=== PATIENT | female | born 1940 | race Caucasian/White ===

== ENCOUNTER 2016-09-25 16:23 | Observation (INO) ==
--- NOTE | 2016-09-25 16:51 | Emergency Department Note ---
Disposition Clinical Impression: Palpitations, PVCs (premature ventricular contractions), Elevated blood pressure reading Disposition: Admitted As Inpatient Condition: Good Arrhythmia/Palpitations HPI - General Chief Complaint: ED Arrhythmia/Palpitations Stated Complaint: frequent pvc's Time Seen by Provider: 09/25/16 16:39 Source: patient Mode of arrival: ambulatory Limitations: no limitations Nursing Notes Reviewed: Yes Vital Signs Reviewed: Yes - History of Present Illness HPI Narrative: 75-year-old female history of hypertension presents for evaluation of irregular heartbeat. Patient notes that approximately week ago she was getting a procedure done by Dr. Cordoba and noted an irregular rhythm on the monitor. Patient had an EKG at that time which showed no acute abnormalities and had a reschedule of her procedure. Patient had a procedure earlier today and noted a continuation of the irregular rhythm on the monitor. Patient notes some fluttering in her chest but denies any specific chest pain. Patient also notes some dyspnea on exertion. No fevers. No cough. Patient states that she is relatively healthy and active with exercise weekly and can climb a flight of stairs without stopping. Denies any excessive caffeine use. No history of thyroid issues. Reports that she eats a healthy diet. Reports that approximately 3 years ago she had a heart catheter and a stress test done after an abnormal EKG but was unsure what the abnormality was. States that no interventions were done following heart catheter. Patient denies any history of DVTs or PEs. No unilateral leg swelling. No recent long travel or periods of immobility. No active cancers. - Related Data Home Medications Medication Instructions Recorded Confirmed Felodipine [Felodipine ER] 2.5 mg PO DAILY 06/11/16 09/25/16 Hydrochlorothiazide [Microzide] 12.5 mg PO DAILY 06/11/16 09/25/16 Dorzolamide [Trusopt] 1 drop RIGHT EYE TID 09/25/16 09/25/16 Fluorometholone [Fml] 1 drop RIGHT EYE QID 09/25/16 09/25/16 Allergies Allergy/AdvReac Type Severity Reaction Status Date / Time JUVENAL Inhibitors Allergy Rash Unverified 07/06/15 13:53 Penicillins [PCN] Allergy Rash Unverified 07/06/15 13:53 Sulfa (Sulfonamide Allergy Rash Unverified 07/06/15 13:53 Antibiotics) All systems ED: reviewed and negative except as stated. Constitutional: Reports: as per HPI. Denies: fever Eyes: Reports: as per HPI ENT ED: Reports: as per HPI Cardiovascular: Reports: as per HPI. Denies: chest pain Respiratory: Reports: as per HPI, dyspnea. Denies: cough Gastrointestinal: Reports: as per HPI. Denies: abdominal pain, nausea, vomiting Genitourinary: Reports: as per HPI Musculoskeletal: Reports: as per HPI Neurological: Reports: as per HPI Psychiatric: Reports: as per HPI. Denies: anxiety Endocrine: Reports: as per HPI Hematological/Lymphatic: Reports: as per HPI Past Medical History - Past Medical History Medical history: Reports: hypertension Psychiatric history: Reports: no psych history - Social History Smoking Status: Never smoker Smokeless Tobacco Status: No Alcohol use: Reports: none, rarely Drug use: Reports: none Physical Exam - General Limitations: no limitations General appearance: alert - Head Head exam: atraumatic, normocephalic, normal inspection - Eye Eye exam: Present: normal appearance, EOMI. Absent: scleral icterus - ENT ENT exam: normal exam, mucous membranes moist - Neck Neck exam: Present: normal inspection - Chest Chest inspection: Present: normal inspection, symmetric chest wall rise - Respiratory Respiratory exam: Present: normal lung sounds bilaterally. Absent: respiratory distress - Cardiovascular Cardiovascular exam: Present: regular rate, irregular rhythm. Absent: systolic murmur - Abdominal Exam Abdominal exam: Present: soft, Non-Tender - Extremities Exam Extremities exam: Present: normal inspection. Absent: pedal edema - Back Exam Back exam: Present: normal inspection - Neurological Exam Neurological exam: Present: alert - Skin Skin exam: Present: warm, dry, intact, normal color Course Course Narrative: Patient seen and examined upon arrival to the emergency department. Patient in no acute distress. Patient does show unifocal PVCs on the monitor. Patient's rhythm strip from the procedure earlier today was reviewed and shows a run of 6 unifocal PVCs. Patient's EKG obtained at bedside shows 4 unifocal PVCs. Patient's vitals are stable. Patient will get basic lab work including a TSH, a EKG, and admission as an inpatient with cardiology evaluation. - Reevaluation(s) Reevaluation #1: Patient seen and examined. Patient's resting. No acute distress. Patient's lab work reviewed and shows no acute abnormalities. This information was discussed with the patient. Time: 18:19 Vital Signs Temperature 97.3 F L 09/25/16 16:36 Pulse Rate 68 09/25/16 16:36 Respiratory Rate 18 09/25/16 16:36 Blood Pressure 171/84 09/25/16 16:36 O2 Sat by Pulse Oximetry 96 09/25/16 16:36 Temperature 97.3 F L 09/25/16 16:36 Pulse Rate 66 09/25/16 18:27 Respiratory Rate 18 09/25/16 19:15 Blood Pressure 150/64 09/25/16 19:15 O2 Sat by Pulse Oximetry 97 09/25/16 18:27 Oxygen Delivery Oxygen Delivery Room Air Arrhythmia/Palpitations - MDM Narrative Medical decision making narrative: 75-year-old female with history of hypertension presents for evaluation or palpitations. Patient states that she had an abnormal rhythm about a week ago and has been having fluttering in her chest since then. Patient denies having any history of cardiac disease. Patient denies any excessive caffeine or thyroid issues. Patient had the procedure performed today by Dr. Cordoba and noted a abnormal rhythm on the monitor which included a run of 6 PVCs. Patient denies any chest pain. Patient obtain basic lab work including a TSH and a magnesium and phosphorus troponin. Due to the patient's age and the fact that she had a run of 6 beats of PVC earlier today she would best be admitted for observation cardiac evaluation. Patient denied any need for pain medications at this time. Patient's lab work reviewed shows no acute abnormalities. Patient in no acute distress in the emergency department. Patient will be admitted for observation and cardiac evaluation. Patient is agreeable to plan of care. - Lab Data Lab results reviewed: Yes I reviewed the patient's lab results. Result diagrams: 09/25/16 17:19 09/25/16 17:19 Lab Results 09/25/16 09/25/16 09/25/16 Range/Units 17:19 17:19 17:19 WBC 5.6 (4.3-11.1) K/mcL RBC 4.74 (3.82-4.97) M/mcL Hgb 14.9 (11.5-15.4) g/dL Hct 43.6 (35.3-44.9) % MCV 92.0 (83.0-100.0) fL MCH 31.4 (28.0-33.3) pg MCHC 34.2 (31.6-35.5) g/dL RDW 11.9 (11.5-14.5) % Plt Count 196 (140-400) K/mcL MPV 10.9 (9.4-12.4) fL Immature Gran % 0.4 (0-4) % Seg Neutrophils % 74.1 % Lymphocytes % 15.0 % Monocytes % 9.1 % Eosinophils % 0.9 % Basophils % 0.5 % Neutrophils # 4.2 (1.6-8.9) K/mcL Lymphocytes # 0.8 (0.6-4.6) K/mcL Monocytes # 0.5 (0.0-1.3) K/mcL Eosinophils # 0.1 (0.0-0.6) K/mcL Basophils # 0.0 (0.0-0.2) K/mcL Sodium 140 (136-145) mEq/L Potassium 3.6 (3.5-4.5) mEq/L Chloride 107 (98-109) mEq/L Carbon Dioxide 26 (19-29) mEq/L BUN 11 (7-20) mg/dL Creatinine 0.72 (0.57-1.11) mg/dL Est GFR ( Amer) > 60 (> 60) Est GFR (Non-Af Amer) > 60 (> 60) BUN/Creatinine Ratio 15 (6-26) Glucose 105 H (70-99) mg/dL Calculated Osmolality 290 (280-300) Calcium 9.7 (8.6-10.8) mg/dL Phosphorus 3.0 (2.3-4.7) mg/dL Magnesium 2.0 (1.6-2.6) mg/dL Troponin I 0.00 (0-0.03) ng/mL TSH 1.185 (0.350-4.840) mcIU/mL - EKG Data EKG attestation: Yes I reviewed and interpreted this EKG. EKG shows normal: sinus rhythm Rate: normal Rhythm: NSR, PVC's (4 unifocal ) [place]/QRS: normal Interpretation: other (unifocal PVC ) S.B.A.R. - S.B.A.R. Situation: Demographics Background: Presenting Complaint Assessment: Vital Signs, Course and respsone to treatment, Exam Concerns, Patient/Family Expectation, Pertinant Lab Results Recommendation: Barrier(s) to disposition, Recommendation based on pending studies, treatments, or consults Wes Report Given to: Dr. Bigg Harvey Repor Time: 18:41 Attestation Statement - Attestation Attestation: I examined this patient and my medical decision-making was reviewed with the Resident Physician. I agree with the documented findings, disposition and treatment plan as described except to the extent set forth below. Palpitations w PVCs, 3 runs of 5-8 beats documented at outside facility (strips sent w patient). Admit for obs, cardiac eval.
[2016-09-25 17:40] LABS: BUN/Creatinine Ratio 15 (6-26); Blood Urea Nitrogen 11 mg/dL (7-20); Calcium 9.7 mg/dL (8.6-10.8); Carbon Dioxide 26 mEq/L (19-29); Chloride 107 mEq/L (98-109); Glucose 105 mg/dL (70-99); Osmolality,Calculated 290 (280-300); Potassium 3.6 mEq/L (3.5-4.5); Sodium 140 mEq/L (136-145); eGFR For African Americans > 60 (> 60); eGFR For Non-African Americans > 60 (> 60)
[2016-09-25 18:00] LABS: Thyroid Stimulating Hormone 1.185 mcIU/mL (0.350-4.840)
[2016-09-25 18:44] LABS: Basophils % 0.5 %; Eosinophils # 0.1 K/mcL (0.0-0.6); Eosinophils % 0.9 %; Hematocrit 43.6 % (35.3-44.9); Hemoglobin 14.9 g/dL (11.5-15.4); Immature Granulocytes % 0.4 % (0-4); Lymphocytes # 0.8 K/mcL (0.6-4.6); Mean Corpuscular HGB Conc 34.2 g/dL (31.6-35.5); Mean Corpuscular Hemoglobin 31.4 pg (28.0-33.3); Mean Platelet Volume 10.9 fL (9.4-12.4); Monocytes # 0.5 K/mcL (0.0-1.3); Monocytes % 9.1 %; Neutrophils # 4.2 K/mcL (1.6-8.9); Platelet Count 196 K/mcL (140-400); Red Blood Count 4.74 M/mcL (3.82-4.97); Red Cell Distribution Width 11.9 % (11.5-14.5); Segmented Neutrophils % 74.1 %
[2016-09-25] MEDS ORDERED: Naloxone 0.4 MG/ML INJ IVP PRN (20:46)
--- NOTE | 2016-09-25 20:50 | Internal Med History&Physical ---
Date of Encounter: 09/25/16 Time of Encounter: 21:00 Assessment and Plan (1) PVCs (premature ventricular contractions) Current visit: No Status: Acute Noted on telemetry during procedure, also several runs of V tach (5-8 beats per episode) noted in ER. Patient mildly symptomatic, but I suspect a component of anxiety is driving her symptoms now that she has been made aware of her PVCs/ short runs of V tach. - K 3.6 - will replace, Mag 2 - TSH within normal limits - Has been evaluated by cardiology in the past - will monitor on telemetry overnight and discharge home in AM with follow up as outpatient in cardiology clinic if no concerning arrhythmias overnight. (2) Essential hypertension Current visit: No Status: Acute BP stable on arrival to the floor - Continue home meds (3) Palpitations Current visit: Yes Status: Acute Secondary to PVCs. Resting heart rate around 50 while patient sleeping, will not initiate beta karl for symptom control at this time. Internal Medicine - H&P: HPI Chief complaint: Palpitations, PVCs on telemetry Admitted From: Emergency Dept Plans for Post Hospital Care: Home History of present illness: Ms. Will is a 75 year old female with history of hypertension and chronic back pain who presented to the ER after frequent PVCs were seen on telemetry during spinal injection with pain management. She had a spinal injection last week where PVCs and possible bigeminy was seen on telemetry and she was referred to cardiology for outpatient evaluation. Cardiology note states that she had PVCs but no bigeminy noted, and conservative management and reassurance were given without need for follow up. Patient states that she does have palpitations and mild shortness of breath with exertion since she was told about the PVCs, and admits she may just be paying more attention now that she is anxious about the newly discovered PVCs. She has not had any chest pain. She had LHC in 2013 which was negative for ischemic disease. In the ER she reportedly had frequent PVCs and was admitted for overnight observation. 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[employer] [place] - Family History Mother Living Status: Age at : 52 Cause of : CARDIAC Hx Family Cardiac Disorders: Yes (MARIA T) Internal Medicine - H&P: Meds Felodipine [Felodipine ER] 2.5 mg PO DAILY 06/11/16 [History] Hydrochlorothiazide [Microzide] 12.5 mg PO DAILY 06/11/16 [History] Dorzolamide [Trusopt] 1 drop RIGHT EYE TID 09/25/16 [History] Fluorometholone [Fml] 1 drop RIGHT EYE QID 09/25/16 [History] Allergies JUVENAL Inhibitors Allergy (Unverified 07/06/15 13:53) Rash Penicillins [PCN] Allergy (Unverified 07/06/15 13:53) Rash Sulfa (Sulfonamide Antibiotics) Allergy (Unverified 07/06/15 13:53) Rash All Systems PM: A 10-system review of systems was performed and is negative for pertinent findings except as documented above in the HPI. - Constitutional Constitutional: no fever(s), no weakness - EENT Eyes: no change in vision - Cardiovascular Cardiovascular ROS IM: palpitations, no chest pain, no lightheadedness, no syncope - Respiratory Respiratory: dyspnea, no cough, no wheezing - Gastrointestinal Gastrointestinal: no diarrhea, no nausea - Musculoskeletal Musculoskeletal ROS IM: back pain - Neurological Neurological ROS: no dizziness, no focal weakness - Psychiatric Psychiatric: anxiety - Allergic/Immunologic Allergic/Immunologic: no tongue swelling, no throat swelling - Constitutional Vitals: Temp Pulse Resp BP Pulse Ox 98.0 F 59 18 144/68 95 09/25/16 19:26 09/25/16 19:26 09/25/16 19:26 09/25/16 19:26 09/25/16 19:26 General appearance: Present: A&O X 3 - Head Head exam: Present: atraumatic - Eye Eye exam: Present: EOMI, sclera anicteric - ENT ENT exam: Present: mucous membranes moist - Neck Neck exam general surgery: Present: supple - Respiratory Respiratory exam: Present: CTAB. Absent: chest wall tenderness - Cardiovascular Cardiovascular exam: Present: RRR. Absent: diastolic murmur, gallop, rubs, systolic murmur - GI/Abdominal GI/Abdominal exam: Present: normal bowel sounds, soft. Absent: distended, tenderness - Neurological Exam Neurological exam: Present: no focal deficits - Skin Skin exam: Absent: rash Internal Med - H&P Results - Labs CBC & Chem 7: 09/25/16 17:19 09/25/16 17:19
[2016-09-25] MEDS: Fluorometholone OPTH 5 ML BOTTLE RIGHT EYE SCH (22:15)
[2016-09-25] MEDS: Dorzolamide OPTH 10 ML BOTTLE RIGHT EYE SCH (22:15)
[2016-09-26 06:34] LABS: Basophils % 0.4 %; Eosinophils % 0.6 %; Hematocrit 43.3 % (35.3-44.9); Hemoglobin 14.9 g/dL (11.5-15.4); Immature Granulocytes % 0.4 % (0-4); Lymphocytes # 0.8 K/mcL (0.6-4.6); Lymphocytes % 15.3 %; Mean Corpuscular HGB Conc 34.4 g/dL (31.6-35.5); Mean Corpuscular Hemoglobin 31.7 pg (28.0-33.3); Mean Corpuscular Volume 92.1 fL (83.0-100.0); Mean Platelet Volume 10.8 fL (9.4-12.4); Monocytes # 0.4 K/mcL (0.0-1.3); Neutrophils # 3.7 K/mcL (1.6-8.9); Platelet Count 200 K/mcL (140-400); Segmented Neutrophils % 75.3 %
[2016-09-26 06:50] LABS: BUN/Creatinine Ratio 14 (6-26); Blood Urea Nitrogen 10 mg/dL (7-20); Calcium 9.4 mg/dL (8.6-10.8); Carbon Dioxide 25 mEq/L (19-29); Chloride 110 mEq/L (98-109); Glucose 126 mg/dL (70-99); Magnesium 2.2 mg/dL (1.6-2.6); Osmolality,Calculated 295 (280-300); Sodium 142 mEq/L (136-145); eGFR For African Americans > 60 (> 60); eGFR For Non-African Americans > 60 (> 60)
[2016-09-26] MEDS: Dorzolamide OPTH 10 ML BOTTLE RIGHT EYE SCH ×3 (08:05→19:09)
[2016-09-26] MEDS: Fluorometholone OPTH 5 ML BOTTLE RIGHT EYE SCH ×4 (08:05→19:09)
[2016-09-26] MEDS ORDERED: FELODIPINE 2.5 MG PO SCH (09:00)
[2016-09-26] MEDS ORDERED: hydroCHLOROthiazide 25 MG TABLET PO SCH (09:00)
[2016-09-26] MEDS: Metoprolol XL (24 HR) Succ 25 MG TAB.ER.24H PO SCH (10:17)
--- NOTE | 2016-09-26 10:42 | Cardiology Consult Note ---
Date of Encounter: 09/26/16 Time of Encounter: 10:45 Assessment and Plan (1) PVCs (premature ventricular contractions) Current Visit: No Status: Acute Per Cardiology: Patient recently seen by cardiology last week for findings of PVCs on telemetry prior to procedure. 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 Troponins negative. Very active with no angina symptoms. Telemetry reviewed with average heart rate 58, PVCs noted with occasional couplets, rare nonsustained VT with longest being 4 beats. Magnesium, potassium , TSH stable. Echo from 11/2013 EF preserved 70%, mild TR. HCTZ already discontinued and patient started on beta karl by primary service. Agree with management options and continue to titrate beta karl as needed. Echo pending. Further recs after echo. Discussion w patient/family: The assessment and plan as outlined above was discussed with the patient and/or family members who expressed understanding and agreement. All questions were answered. Thank you for involving us in the care of your patient. Please call with any questions. Discussed and reviewed with Dr. Pruitt. History of Present Illness Consult date: 09/26/16 Requesting physician: Eliazar Pride Consult reason: PVCs Chief complaint: Palpitations History of present illness: Previous records reviewed: "Ms. Will is a 75 year old female with history of hypertension and chronic back pain who presented to the ER after frequent PVCs were seen on telemetry during spinal injection with pain management. She had a spinal injection last week where PVCs and possible bigeminy was seen on telemetry and she was referred to cardiology for outpatient evaluation. Cardiology note states that she had PVCs but no bigeminy noted, and conservative management and reassurance were given without need for follow up. Patient states that she does have palpitations and mild shortness of breath with exertion since she was told about the PVCs, and admits she may just be paying more attention now that she is anxious about the newly discovered PVCs. She has not had any chest pain. She had LHC in 2013 which was negative for ischemic disease. In the ER she reportedly had frequent PVCs and was admitted for overnight observation". Cardiology eval requested again for PVCs. Patient reports finally had back procedure completed yesterday and was found to have PVCs on monitor again. She reports increased palpitations over the past week that she attributes to now having awareness to the PVCs. She reports she is fairly active and exercises at the [employer] 3 times a week. She reports she walks pills regularly and walks 4 miles this past Saturday with no symptoms. She denies any dizziness, syncope, falls. Past Med Surg Social Fam HX - Past Medical History Attestation: Yes The following information was validated with the patient. Source: patient, old records reviewed Medical history: hypertension Psychiatric history: no psych history - Social History Smoking Status: Never smoker Smokeless Tobacco Status: No Alcohol use: none, rarely Drug use: none - Family History Mother Living Status: Age at : 52 Cause of : CARDIAC Hx Family Cardiac Disorders: Yes (MURMER) Medications and Allergies Felodipine [Felodipine ER] 2.5 mg PO DAILY 06/11/16 [History] Hydrochlorothiazide [Microzide] 12.5 mg PO DAILY 06/11/16 [History] Dorzolamide [Trusopt] 1 drop RIGHT EYE TID 09/25/16 [History] Fluorometholone [Fml] 1 drop RIGHT EYE QID 09/25/16 [History] Allergies JUVENAL Inhibitors Allergy (Verified 09/26/16 08:04) Rash Penicillins [PCN] Allergy (Verified 09/26/16 08:04) Rash Sulfa (Sulfonamide Antibiotics) Allergy (Verified 09/26/16 08:04) Rash All Systems Review: A 10-system review of systems was performed and is negative for pertinent findings except as documented above in the HPI. - Cardiovascular Cardiovascular: as per HPI, palpitations Physical Examination Vital Signs, Last 4 Hours Temp Pulse Resp BP Pulse Ox 09/26/16 08:06 96 09/26/16 07:27 97.8 F 63 16 150/76 96 General: Conversant, No Apparent Distress HEENT: Atraumatic, Normocephaly Cardiac: Reg Rate and Rhythm, Normal S1 and S2, No Murmur Lungs: Normal Breath Sounds, No Wheeze, Rales, Rhonchi Neuro: Alert and responsive, No focal deficits noted Skin: No rashes noted on visualized skin Musculoskeletal: No Chest Wall Tenderness Extremities: No Edema, Normal Pulses Results 09/26/16 05:29 09/26/16 05:29 Lab Results Laboratory Tests 09/25/16 09/25/16 09/25/16 17:19 17:19 22:51 Potassium Magnesium Troponin I 0.00 0.00 TSH 1.185 09/26/16 09/26/16 05:29 05:29 Potassium 4.0 Magnesium 2.2 Troponin I 0.00 TSH Active Medications Dorzolamide HCl (Trusopt) 1 drop RIGHT EYE TID [facility] Stop: 03/27/17 21:01 Last Admin: 09/26/16 08:05 Dose: Not Given Fluorometholone (Fml) 1 drop RIGHT EYE QID [facility] Stop: 03/27/17 21:01 Last Admin: 09/26/16 08:05 Dose: Not Given Metoprolol Succinate (Toprol Xl) 12.5 mg PO DAILY [facility] Stop: 03/28/17 10:01 Last Admin: 09/26/16 10:17 Dose: 12.5 mg Naloxone HCl (Narcan) 0.4 mg IVP Q2MIN PRN PRN Reason: Opioid Reversal Stop: 03/27/17 20:47 - Imaging and Cardiology Echo: pending - EKG Interpretation EKG results cardiology: personally reviewed, sinus rhythm (PVCs), other (24 hr tele reviewed, SR with avg HR 58, PVCs with occasional couplets, rare NSVT with longest being 4 beats) Consult Discharge Plan - Plan Referrals: Sravan Millan DO [Primary Care Provider] -
--- NOTE | 2016-09-26 16:12 | Internal Med Progress Note ---
<Iggy Arevalo - Last Filed: 09/26/16 16:10> Date of Encounter: 09/26/16 Time of Encounter: 16:10 - Assessment and plan (1) Nonsustained ventricular tachycardia Current Visit: Yes Status: Acute Assessment and plan: Max beats 9 ( in ER) 24 hour telemtry revealed max of 4 beats. Mildy symptomatic at this time. LHC 2013 showed mild CAD so very unlikely to be ischemic. Normal Eletrolytes. TSH within normal limits. Denies excess consumptions of caffeine. Dose not take ay over the counter medications or herbal supplements. Will start her on a low dose beta karl. Await echo results. Cardiology consulted. Disccused with cardiology team. Possible DC if Echo is normal. Appreciate cardiologies input. (2) Essential hypertension Current Visit: No Status: Acute Assessment and plan: above goal. Will add a beta karl to current regimen. (3) PVCs (premature ventricular contractions) Current Visit: Yes Status: Acute Assessment and plan: as stated above. (4) DVT prophylaxis Current Visit: Yes Status: Acute Assessment and plan: ambulate EPCDs while in bed. - Subjective Interval history: No major events overnight. I reviewed Telemetry form the past 24 hours. has some PVCs and some Non sustained Vtach of 4 beats. Max beats was 9 in the ED. Patient had been asymptomatic until being told she had PVCs. She states now she notices palpitations. she denies any chest pain, dyspnea, orthopnea, dizzyness, syncope presyncope. She has no further complaints or concerns at this time. She did have a LHC in November of 2013. This revealed minimal CAD. - Constitutional Vitals: Temp Pulse Resp BP Pulse Ox 97.8 F 63 16 150/76 96 09/26/16 07:27 09/26/16 07:27 09/26/16 07:27 09/26/16 07:27 09/26/16 08:06 General appearance: Present: A&O X 3 - Head Head exam: Present: atraumatic, normocephalic - Eye Eye exam: Present: PERRL, conjuntiva pink, sclera anicteric Pupils: Present: PERRL - Neck Neck exam general surgery: Present: supple, trachea midline. Absent: lymphadenopathy - Respiratory Respiratory exam: Present: CTAB. Absent: accessory muscle use, rales, rhonchi, wheezes - Cardiovascular Cardiovascular exam: Present: RRR, +S1, +S2. Absent: diastolic murmur, gallop, rubs, systolic murmur - GI/Abdominal GI/Abdominal exam: Present: normal bowel sounds, soft, no peritoneal signs. Absent: distended, tenderness - Extremities Exam Extremities exam: Present: warm, radial pulses palpable and symetrical. Absent : calf tenderness, cyanotic, pedal edema - Skin Skin exam: Present: dry, intact Internal Medicine: Result - Labs CBC & Chem 7: 09/26/16 05:29 09/26/16 05:29 Labs: Short CBC 09/26/16 Range/Units 05:29 WBC 4.9 (4.3-11.1) K/mcL Hgb 14.9 (11.5-15.4) g/dL Hct 43.3 (35.3-44.9) % Plt Count 200 (140-400) K/mcL Neutrophils # 3.7 (1.6-8.9) K/mcL BMP 09/26/16 05:29 Sodium 142 Potassium 4.0 Chloride 110 H Carbon Dioxide 25 BUN 10 Creatinine 0.71 Glucose 126 H Calcium 9.4 Cardiac Enzymes 09/25/16 09/26/16 09/26/16 Range/Units 22:51 05:29 11:21 Troponin I 0.00 0.00 0.00 (0-0.03) ng/mL Consult Discharge Plan - Plan Referrals: Sravan Millan DO [Primary Care Provider] - <Lori Vicente - Last Filed: 09/26/16 17:11> Date of Encounter: 09/26/16 - Constitutional Vitals: Temp Pulse Resp BP Pulse Ox 97.8 F 63 16 150/76 96 09/26/16 07:27 09/26/16 07:27 09/26/16 07:27 09/26/16 07:27 09/26/16 08:06 Internal Medicine: Result - Labs CBC & Chem 7: 09/26/16 05:29 09/26/16 05:29 Labs: Short CBC 09/26/16 Range/Units 05:29 WBC 4.9 (4.3-11.1) K/mcL Hgb 14.9 (11.5-15.4) g/dL Hct 43.3 (35.3-44.9) % Plt Count 200 (140-400) K/mcL Neutrophils # 3.7 (1.6-8.9) K/mcL BMP 09/26/16 05:29 Sodium 142 Potassium 4.0 Chloride 110 H Carbon Dioxide 25 BUN 10 Creatinine 0.71 Glucose 126 H Calcium 9.4 Cardiac Enzymes 09/25/16 09/26/16 09/26/16 Range/Units 22:51 05:29 11:21 Troponin I 0.00 0.00 0.00 (0-0.03) ng/mL - Attending Attestation I examined this patient and reviewed laboratory, imaging and all diagnostic data. My medical decision-making was reviewed with Dr Arevalo - Resident Physician. I agree with the documented findings, disposition and treatment plan as described above
[2016-09-27 07:37] VITALS: BP 130/73
[2016-09-27] MEDS: Fluorometholone OPTH 5 ML BOTTLE RIGHT EYE SCH (07:41)
[2016-09-27] MEDS: Dorzolamide OPTH 10 ML BOTTLE RIGHT EYE SCH (07:41)
[2016-09-27] MEDS: Metoprolol XL (24 HR) Succ 25 MG TAB.ER.24H PO SCH (07:53)
--- NOTE | 2016-09-27 08:19 | Cardiology Progress Note ---
Date of Encounter: 09/27/16 Time of Encounter: 08:20 Assessment and Plan (1) PVCs (premature ventricular contractions) Current Visit: No Status: Acute Per Cardiology: Patient recently seen by cardiology last week for findings of PVCs on telemetry prior to procedure. 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 Troponins negative. Very active with no angina symptoms. Telemetry reviewed with average heart rate 57, PVCs noted with occasional couplets, rare nonsustained VT with longest being 3 beats. Magnesium, potassium , TSH stable. Echo from 11/2013 EF preserved 70%, mild TR. HCTZ already discontinued and patient started on beta karl by primary service. Echo showed EF preserved 70%, normal diastolic function, no significant valvular dysfunction, no pulmonary hypertension, no segmental wall motion abnormalities. Cardiology will sign off, re-consult as needed, follow-up in outpatient setting scheduled. All questions answered. Discussion w patient/family: The assessment and plan as outlined above was discussed with the patient and/or family members who expressed understanding and agreement. All questions were answered. Thank you for involving us in the care of your patient. Please call with any questions. Subjective Principal diagnosis: PVCs, Palps Interval history: Patient denies any chest pain, shortness of breath, or palpitations. Denies any new concerns or complaints overnight. Objective Vital Signs, Last 4 Hours Temp Pulse Resp BP Pulse Ox 09/27/16 07:35 98.0 F 55 14 130/73 95 09/27/16 04:52 98.7 F 58 16 118/73 96 General: Conversant, No Apparent Distress HEENT: Atraumatic, Normocephaly Cardiac: Reg Rate and Rhythm, Normal S1 and S2, No Murmur Lungs: Normal Breath Sounds, No Wheeze, Rales, Rhonchi Neuro: Alert and responsive, No focal deficits noted Skin: No rashes noted on visualized skin Extremities: No Edema, Normal Pulses Results 09/26/16 05:29 09/26/16 05:29 Lab Results Laboratory Tests 09/25/16 09/25/16 09/25/16 17:19 17:19 22:51 Potassium Magnesium Troponin I 0.00 0.00 TSH 1.185 09/26/16 09/26/16 09/26/16 05:29 05:29 11:21 Potassium 4.0 Magnesium 2.2 Troponin I 0.00 0.00 TSH Active Medications Dorzolamide HCl (Trusopt) 1 drop RIGHT EYE TID [facility] Stop: 03/27/17 21:01 Last Admin: 09/27/16 07:41 Dose: Not Given Fluorometholone (Fml) 1 drop RIGHT EYE QID [facility] Stop: 03/27/17 21:01 Last Admin: 09/27/16 07:41 Dose: Not Given Metoprolol Succinate (Toprol Xl) 12.5 mg PO DAILY [facility] Stop: 03/28/17 10:01 Last Admin: 09/27/16 07:53 Dose: 12.5 mg Naloxone HCl (Narcan) 0.4 mg IVP Q2MIN PRN PRN Reason: Opioid Reversal Stop: 03/27/17 20:47 - Imaging and Cardiology Echo: pending - EKG Interpretation EKG results cardiology: other (24 hr tele reviewed with avg HR 57, few episodes of NSVT longest 3 beats, few couplets, and PVCs) Consult Discharge Plan - Plan Referrals: Sravan Millan DO [Primary Care Provider] -
--- NOTE | 2016-09-27 08:41 | ECHO - Doppler Report ---
Echocardiogram Name: Brittanie Will Date of Study: 09/26/2016 Date: 1940 Ht: 61.0 in Medical Record#: [id number] Age: 75 Wt: 124.0 lb Gender: Female BSA: 1.54 Order #: [id number] Location: [facility] Room #: 3B46 Reading Physician: Toro Richmond MD, [facility] Board Catcher: Arianna Robertson Ordering Physician: Iggy Arevalo DO Primary Physician: Dixie Millan DO Indications: nonsustaine Vtach Impressions: Normal LV systolic function, LVEF 70%. Normal left ventricular diastolic function. Normal right ventricular size and function. No significant valvular dysfunction. No evidence of pulmonary hypertension. Left Ventricular Wall Motion: Rest Echo Findings All wall segments showed normal motion. Findings: Study Quality * Suboptimal echo windows. ECG Findings * Sinus rhythm and sinus bradycardia. Left Ventricle * Normal LV systolic function, LVEF 70%. * Normal LV chamber size and wall thickness. * Normal left ventricular diastolic function. Right Ventricle * Normal right ventricular size and function. Left Atrium * Normal left atrial size. Right Atrium * Normal right atrial size. Aorta * Normally sized aortic root. Pericardium * There is no pericardial effusion present. IVC * Normal IVC dimensions and inspiratory collapse. Aortic Valve * Aortic valve not well visualized. * No aortic stenosis. * No aortic regurgitation. Mitral Valve * Mildly calcified mitral valve leaflets. * No mitral stenosis. * Trace mitral regurgitation. Tricuspid Valve * Normal tricuspid valve structure. * No tricuspid stenosis. * Trace tricuspid regurgitation. * No evidence of pulmonary hypertension. Pulmonic Valve * Pulmonic valve not well visualized. * No pulmonic stenosis. * Trace pulmonic regurgitation. History Hypertension 11/25/2013 a Previous Echo was performed. Measurements: BP: 150/ 76 2D Normal Values RVIDd: 2.60 cm IVSd: 1.00 cm 0.6 - 1.0 cm LVIDd: 3.50 cm 3.7 - 5.6 cm LVPWd: 1.00 cm 0.6 - 1.1 cm LVIDs: 2.20 cm 1.5 - 3.6 cm AO: 2.90 cm < 4.0 cm %FS: 37.10 cm >25 % LA volume: 27 Mitral Valve Peak E:.87 m/sec Peak A:.67 m/sec E/A Ratio:1.3 Tricuspid Valve TV Regurg Peak Grad: 24.00mmHg TV Regurg Peak Camron: 2.43m/sec Updated by Toro Richmond MD, [facility] on 09/27/2016 8:34:42 AM electronically signed on 09/27/2016 8:35:28 AM with status of Final Wall Motion [place]ra: 1=Normal, 2=Hypokinesis, 3=Akinesis, 4=Dyskinesis, 5=Aneurysmal, 6=Hyperkinetic, X=Not Visualized (Blank)=Missing
--- NOTE | 2016-09-27 09:54 | Discharge Summary ---
<Iggy Arevalo - Last Filed: 09/27/16 09:51> Date of Encounter: 09/27/16 Time of Encounter: 09:53 - Discharge Diagnosis (1) Nonsustained ventricular tachycardia Priority: Primary Status: Acute (2) Essential hypertension Priority: Secondary Status: Acute (3) PVCs (premature ventricular contractions) Priority: Secondary Status: Acute (4) DVT prophylaxis Priority: Secondary Status: Acute - Discharge Medications Prescriptions: Metoprolol XL (24 HR) Succ [Toprol Xl] 12.5 mg PO DAILY 30 Days Home Medications: Felodipine [Felodipine ER] 2.5 mg PO DAILY 06/11/16 [History] Dorzolamide [Trusopt] 1 drop RIGHT EYE TID 09/25/16 [History] Fluorometholone [Fml] 1 drop RIGHT EYE QID 09/25/16 [History] Metoprolol XL (24 HR) Succ [Toprol Xl] 12.5 mg PO DAILY 30 Days 09/27/16 [Rx] Allergies/Adverse Reactions: Allergies JUVENAL Inhibitors Allergy (Verified 09/26/16 08:04) Rash Penicillins [PCN] Allergy (Verified 09/26/16 08:04) Rash Sulfa (Sulfonamide Antibiotics) Allergy (Verified 09/26/16 08:04) Rash Procedures/tests Complete & Pending: Procedures Performed prior 72 hours Category Date Time Status ECG 12 lead ECG [ECG] Stat Y 09/25/16 20:27 Completed EV echocardiogram Routine Y 09/26/16 09:57 Completed Date of admission: 09/25/16 18:45 Primary care physician: Sravan Millan Consults: 09/26/16 09:29 Consult to Cardiology [CONS] Routine Comment: Consulting Provider: Cardiology Tonia Reason for Consult: Nonsustained Vtach Call Completed: Yes Discharging clinician: Iggy Arevalo Anticipated date of discharge: 09/27/16 - Patient Status Disposition: Home, Self-Care Condition: Good Functional capacity at discharge: independent ambulation Overall status at discharge: patient is back to baseline - Discharge Instructions Follow Up With: Sravan Millan DO [Primary Care Provider] - - Diet and Activity Activity: increase activity as tolerated Diet: advance to your usual diet, low fat, low cholesterol, low salt diet Hospital course: Ms. Will is a 75 year old female who was sent to the Ed for unusual rhythm on monitor. she was found to have PVCs and nonsustained V tach. The largest run was 9 beats during the entire hospitalization. She had a LHC in 2014 which showed only minimal disease. She had an echocardiogram which showed no abnormalities. Troponins were normal. She was quite active and asymptomatic until she was told she had this rhythm. Thereafter she only had mild symptoms. We did start her on a low dose of metoprolol. Today she is asymptomatic. HCTZ was held during this admission. we will discontinue as her blood pressure is at goal on current regimen of Toprol and felodipine. No vital sign or laboratory abnormalities. she has voiced back understanding and agreement of the above. - Time Spent with Patient Total time spent providing and/or coordinating discharge services: Greater than 30 minutes (approximatly 35 minutes) - Constitutional Vitals: Temp Pulse Resp BP Pulse Ox 98.0 F 55 14 130/73 95 09/27/16 07:35 09/27/16 07:35 09/27/16 07:35 09/27/16 07:35 09/27/16 07:35 General appearance: Present: A&O X 3 - Head Head exam: Present: atraumatic, normocephalic - Eye Eye exam: Present: PERRL, conjuntiva pink, sclera anicteric Pupils: Present: PERRL - Neck Neck exam general surgery: Present: supple, trachea midline. Absent: lymphadenopathy - Respiratory Respiratory exam: Present: CTAB. Absent: accessory muscle use, rales, rhonchi, wheezes - Cardiovascular Cardiovascular exam: Present: RRR, +S1, +S2. Absent: diastolic murmur, gallop, rubs, systolic murmur - GI/Abdominal GI/Abdominal exam: Present: normal bowel sounds, soft, no peritoneal signs. Absent: distended, tenderness - Extremities Exam Extremities exam: Present: warm, radial pulses palpable and symetrical. Absent : calf tenderness, cyanotic, pedal edema - Skin Skin exam: Present: dry, intact <Lori Vicente - Last Filed: 10/03/16 13:12> Date of Encounter: 10/03/16 Date of admission: 09/25/16 18:45 Primary care physician: Sravan Millan Consults: 09/26/16 09:29 Consult to Cardiology [CONS] Routine Comment: Consulting Provider: Cardiology Tonia Reason for Consult: Nonsustained Vtach Call Completed: Yes Hospital course: Ms. Will is a 75 year old female - Time Spent with Patient Total time spent providing and/or coordinating discharge services: - Constitutional Vitals: Temp Pulse Resp BP Pulse Ox 98.0 F 55 14 130/73 95 09/27/16 07:35 09/27/16 07:35 09/27/16 07:35 09/27/16 07:35 09/27/16 07:35 - Attending Attestation I examined this patient and reviewed laboratory, imaging and all diagnostic data. My medical decision-making was reviewed with Dr Arevalo - Resident Physician. I agree with the documented findings, disposition and treatment plan as described above
--- NOTE | 2016-09-27 11:26 | Electrocardiograph Report ---
[place] [id number] Test Date: 2016-09-25 Pat Name: Brittanie Will Department: 103 Room: 3B46 Gender: F [employer] Attendant: [facility] : 1940 Requested By: Toor Husain Order Number: [id number] Reading MD: Raza Pruitt MD Measurements Intervals [place] Rate: 75 P: 68 GA: 162 QRS: -13 QRSD: 97 T: 51 QT: 414 QTc: 443 Interpretive Statements SINUS RHYTHM WITH FREQUENT VENTRICULAR PREMATURE COMPLEXES LEFT ATRIAL ENLARGEMENT Electronically Signed On 09-27-2016 11:24:41 EDT by Raza Priutt MD
--- NOTE | 2016-09-27 18:06 | Electrocardiograph Report ---
[place] [id number] Test Date: 2016-09-26 Pat Name: Brittanie Will Department: 113 Room: 3B46 Gender: F Occasional Caregiver: [facility] : 1940 Requested By: Lori Vicente Order Number: [id number] Reading MD: Raza Priutt MD Measurements Intervals [place] Rate: 67 P: 74 IL: 171 QRS: -2 QRSD: 98 T: 61 QT: 427 QTc: 443 Interpretive Statements SINUS RHYTHM LEFT ATRIAL ENLARGEMENT Electronically Signed On 09-27-2016 18:05:35 EDT by Raza Pruitt MD
== END 2016-09-27 10:28 | disposition home or self-care (01) ==
LOC: 3BNU 16:23 → EMEROO 16:23 → SUATTDRO 18:45 → 3BNU 19:26
PROVIDERS: ADMIT Internal Medicine; ATTEND Internal Medicine

== ENCOUNTER 2017-05-01 17:32 | Observation (INO) ==
--- NOTE | 2017-05-01 18:20 | Emergency Department Note ---
Disposition Clinical Impression: PVC (premature ventricular contraction), Palpitations, Nonsustained ventricular tachycardia Disposition: Admitted As Inpatient Condition: Fair Time of Disposition: 20:37 General Adult HPI - General Chief complaint: ED Chest Pain Stated complaint: chest pain Time Seen by Provider: 05/01/17 17:56 Source: patient Mode of arrival: ambulatory Limitations: no limitations Nursing Notes Reviewed: Yes Vital Signs Reviewed: Yes - History of Present Illness HPI Narrative: 76-year-old female presenting to the emergency department with chief complaint of feeling like her heart is "anxious". Patient states she has a history of PVCs and she is on metoprolol for this. She states she normally has daily PVCs but today is significantly worse. She denies any active chest pain or pressure she just states her heart feels "anxious". Patient did have a cardiac catheterization 2 years ago which was within normal limits. Patient has no significant myocardial infarction or stroke history. She is otherwise healthy. She denies any dizziness or passing out. She denies being on any anticoagulation. Pain Scale: 3 - Related Data Home Medications Medication Instructions Recorded Confirmed Felodipine [Felodipine ER] 2.5 mg PO DAILY 06/11/16 05/01/17 Fluorometholone [Fml] 1 drop RIGHT EYE QID 09/25/16 05/01/17 Azithromycin [Azithromycin] 250 mg PO PER PKG DI 05/01/17 05/01/17 Previous Rx's Medication Instructions Recorded Metoprolol XL (24 HR) Succ [Toprol 12.5 mg PO DAILY 30 Days 09/27/16 Xl] tab.er.24h Allergies Allergy/AdvReac Type Severity Reaction Status Date / Time JUVENAL Inhibitors Allergy Rash Verified 09/26/16 08:04 Penicillins [PCN] Allergy Rash Verified 09/26/16 08:04 Sulfa (Sulfonamide Allergy Rash Verified 09/26/16 08:04 Antibiotics) All systems ED: reviewed and negative except as stated. Constitutional: Denies: fever, chills Eyes: Reports: as per HPI ENT ED: Reports: as per HPI Cardiovascular: Reports: palpitations. Denies: chest pain, dyspnea on exertion Respiratory: Denies: cough, dyspnea, wheezes Gastrointestinal: Denies: abdominal pain, nausea, vomiting Genitourinary: Reports: as per HPI Musculoskeletal: Reports: as per HPI Integumentary: Denies: rash, abrasion, lesions Neurological: Reports: as per HPI Psychiatric: Reports: as per HPI Endocrine: Reports: as per HPI Hematological/Lymphatic: Reports: as per HPI Allergic/Immunologic: Reports: as per HPI Past Medical History - Past Medical History Attestation: Yes The following information was validated with the patient. Medical history: Reports: hypertension Psychiatric history: Reports: no psych history - Social History Smoking Status: Never smoker Smokeless Tobacco Status: No Alcohol use: Reports: none Drug use: Reports: none Physical Exam - General Limitations: no limitations General appearance: alert, in no apparent distress - Head Head exam: atraumatic, normocephalic, normal inspection - Eye Eye exam: Present: normal appearance. Absent: scleral icterus, conjunctival injection - Chest Chest inspection: Present: normal inspection, symmetric chest wall rise. Absent : tenderness, rash - Respiratory Respiratory exam: Present: normal lung sounds bilaterally. Absent: respiratory distress, wheezes - Cardiovascular Cardiovascular exam: Present: regular rate, normal rhythm, normal heart sounds - Abdominal Exam Abdominal exam: Present: soft, Non-Tender. Absent: distention, guarding, rebound - Extremities Exam Extremities exam: Present: normal inspection, full ROM - Neurological Exam Neurological exam: Present: alert, oriented X3 - Psychiatric Psychiatric exam: Present: normal affect, normal mood - Skin Skin exam: Present: warm, intact Course Course Narrative: 76-year-old female presenting to the emergency department with palpitations. EKG showed PVCs and U waves. We will obtain basic lab work including CBC, BMP and troponin along with an EKG and chest x-ray. Patient's alert and oriented 3 in the room and stable vital signs at this time. She agrees with this plan. Disposition pending these results. - Reevaluation(s) Reevaluation #1: All the patient's lab work has come back within normal limits. Patient being monitored and noted to have multiple episodes of 4-5 PVCs in a row. We completed another EKG which showed bigeminy. Patient starting to feel anxious in the room. We will provide her with Ativan. I spoke to the hostess on- call Dr. Valverde who would like us to admit the patient to the hospitalist team and place the patient on 25 MG metoprolol BID. He agrees to see the patient in the morning to evaluate her response to this. I spoke to the hospitalist guncotton packer Dr. Regalado who agrees to accept the patient at this time. The patient is alert and oriented x3 in the room with stable vital signs at the time of admission. Vital Signs Temperature 98.1 F 05/01/17 17:49 Pulse Rate 51 05/01/17 17:49 Respiratory Rate 16 05/01/17 17:49 Blood Pressure 176/82 05/01/17 17:49 O2 Sat by Pulse Oximetry 96 05/01/17 17:49 Temperature 98.1 F 05/01/17 17:49 Pulse Rate 62 05/01/17 19:42 Respiratory Rate 18 05/01/17 20:20 Blood Pressure 126/64 05/01/17 20:20 O2 Sat by Pulse Oximetry 97 05/01/17 19:42 Oxygen Delivery Oxygen Delivery Room Air Medical Decision Making - Lab Data Result diagrams: 05/01/17 18:15 05/01/17 18:15 Lab Results 05/01/17 05/01/17 05/01/17 Range/Units 18:15 18:15 18:15 WBC 6.7 (4.3-11.1) K/mcL RBC 4.75 (3.82-4.97) M/mcL Hgb 15.1 (11.5-15.4) g/dL Hct 44.1 (35.3-44.9) % MCV 92.8 (83.0-100.0) fL MCH 31.8 (28.0-33.3) pg MCHC 34.2 (31.6-35.5) g/dL RDW 12.2 (11.5-14.5) % Plt Count 235 (140-400) K/mcL MPV 10.5 (9.4-12.4) fL Immature Gran % 0.1 (0-4) % Seg Neutrophils % 67.6 % Lymphocytes % 21.5 % Monocytes % 9.2 % Eosinophils % 0.9 % Basophils % 0.7 % Neutrophils # 4.6 (1.6-8.9) K/mcL Lymphocytes # 1.5 (0.6-4.6) K/mcL Monocytes # 0.6 (0.0-1.3) K/mcL Eosinophils # 0.1 (0.0-0.6) K/mcL Basophils # 0.1 (0.0-0.2) K/mcL PT 10.9 (9.4-12.1) Seconds INR 1.0 APTT 25.9 L (26.0-36.0) Seconds Sodium 141 (136-145) mEq/L Potassium 3.8 (3.5-4.5) mEq/L Chloride 107 (98-109) mEq/L Carbon Dioxide 24 (19-29) mEq/L BUN 10 (7-20) mg/dL Creatinine 0.76 (0.57-1.11) mg/dL Est GFR ( Amer) > 60 (> 60) Est GFR (Non-Af Amer) > 60 (> 60) BUN/Creatinine Ratio 13 (6-26) Glucose 99 (70-99) mg/dL Calculated Osmolality 291 (280-300) Calcium 9.6 (8.6-10.8) mg/dL Phosphorus 4.2 (2.3-4.7) mg/dL Magnesium 2.0 (1.6-2.6) mg/dL Troponin I (0-0.03) ng/mL TSH 1.491 (0.350-4.840) mcIU/mL 05/01/17 Range/Units 18:15 WBC (4.3-11.1) K/mcL RBC (3.82-4.97) M/mcL Hgb (11.5-15.4) g/dL Hct (35.3-44.9) % MCV (83.0-100.0) fL MCH (28.0-33.3) pg MCHC (31.6-35.5) g/dL RDW (11.5-14.5) % Plt Count (140-400) K/mcL MPV (9.4-12.4) fL Immature Gran % (0-4) % Seg Neutrophils % % Lymphocytes % % Monocytes % % Eosinophils % % Basophils % % Neutrophils # (1.6-8.9) K/mcL Lymphocytes # (0.6-4.6) K/mcL Monocytes # (0.0-1.3) K/mcL Eosinophils # (0.0-0.6) K/mcL Basophils # (0.0-0.2) K/mcL PT (9.4-12.1) Seconds INR APTT (26.0-36.0) Seconds Sodium (136-145) mEq/L Potassium (3.5-4.5) mEq/L Chloride (98-109) mEq/L Carbon Dioxide (19-29) mEq/L BUN (7-20) mg/dL Creatinine (0.57-1.11) mg/dL Est GFR ( Amer) (> 60) Est GFR (Non-Af Amer) (> 60) BUN/Creatinine Ratio (6-26) Glucose (70-99) mg/dL Calculated Osmolality (280-300) Calcium (8.6-10.8) mg/dL Phosphorus (2.3-4.7) mg/dL Magnesium (1.6-2.6) mg/dL Troponin I 0.01 (0-0.03) ng/mL TSH (0.350-4.840) mcIU/mL - EKG Data EKG #1 EKG attestation: Yes I reviewed and interpreted this EKG. EKG results narrative: Sinus rhythm with frequent PVCs. Left atrial enlargement. Right ventricular conduction delay. U waves noted in V4 and V5. Rate of 76 bpm, IN interval 132 , QRS 89, QTc 442. Compared to previous EKG completed on 09/26/2016 PVCs noted along with new U waves. EKG #2 EKG attestation: Yes I reviewed and interpreted this EKG. EKG results narrative: Repeat EKG completed at 18:57. Sinus rhythm with frequent PVCs now bigeminy. Rate of 71 bpm. IN interval 156, QRS 90, QTC 434. U waves still present.
[2017-05-01 18:27] LABS: Basophils # 0.1 K/mcL (0.0-0.2); Basophils % 0.7 %; Eosinophils # 0.1 K/mcL (0.0-0.6); Eosinophils % 0.9 %; Hematocrit 44.1 % (35.3-44.9); Hemoglobin 15.1 g/dL (11.5-15.4); Immature Granulocytes % 0.1 % (0-4); Lymphocytes # 1.5 K/mcL (0.6-4.6); Lymphocytes % 21.5 %; Mean Corpuscular HGB Conc 34.2 g/dL (31.6-35.5); Mean Corpuscular Hemoglobin 31.8 pg (28.0-33.3); Mean Corpuscular Volume 92.8 fL (83.0-100.0); Mean Platelet Volume 10.5 fL (9.4-12.4); Monocytes # 0.6 K/mcL (0.0-1.3); Monocytes % 9.2 %; Neutrophils # 4.6 K/mcL (1.6-8.9); Platelet Count 235 K/mcL (140-400); Red Blood Count 4.75 M/mcL (3.82-4.97); Red Cell Distribution Width 12.2 % (11.5-14.5); Segmented Neutrophils % 67.6 %
[2017-05-01 18:35] LABS: Prothrombin Time 10.9 Seconds (9.4-12.1)
[2017-05-01 18:38] LABS: Activated Partial Thrombo Time 25.9 Seconds (26.0-36.0)
[2017-05-01 18:41] LABS: BUN/Creatinine Ratio 13 (6-26); Blood Urea Nitrogen 10 mg/dL (7-20); Calcium 9.6 mg/dL (8.6-10.8); Carbon Dioxide 24 mEq/L (19-29); Chloride 107 mEq/L (98-109); Glucose 99 mg/dL (70-99); Osmolality,Calculated 291 (280-300); Potassium 3.8 mEq/L (3.5-4.5); Sodium 141 mEq/L (136-145); eGFR For African Americans > 60 (> 60); eGFR For Non-African Americans > 60 (> 60)
[2017-05-01] MEDS ORDERED: Amiodarone Premix 150 MG/100 ML BAG IVPB ONE (18:56)
[2017-05-01] MEDS ORDERED: 0.9 % Sodium Chloride 1,000 ML IVC ONE (18:56)
[2017-05-01] MEDS ORDERED: Amiodarone Premix 360 MG/200 ML BAG IVC ONE (18:59)
[2017-05-01] MEDS ORDERED: Amiodarone Premix 360 MG/200 ML BAG IVC SCH (19:00)
[2017-05-01] MEDS ORDERED: ALPRAZolam 0.5 MG TABLET PO ONE (19:01)
[2017-05-01 19:10] LABS: Phosphorous 4.2 mg/dL (2.3-4.7)
[2017-05-01 19:32] LABS: Thyroid Stimulating Hormone 1.491 mcIU/mL (0.350-4.840)
[2017-05-01] MEDS ORDERED: *HR* Metoprolol 5 MG/5 ML VIAL IVP ONE (19:36)
--- NOTE | 2017-05-01 19:45 | Emergency Department Note ---
START Narrative - START START: I examined this patient and my medical decision-making was reviewed with the Resident Physician. I agree with the documented findings, disposition and treatment plan as described except to the extent set forth below. 76 yo F here for palpitations. pt found to be bradycardic at times with a baseline trigeminy. She has had multiple runs of 3-4 consecutive PVCs concerning for V. tach. Lab work is unremarkable. Chest x-rays negative. Her EKG shows a had evidence of U waves. Plan to admit to the hospitalist to consult cardiology. They would prefer giving 25 mg by mouth of metoprolol twice daily for now. We did consult with him over the phone. She is otherwise hemodynamically stable. critical care time of 35 min spent in medical management, consultation with Dr Valverde
[2017-05-01] MEDS ORDERED: Ondansetron 4 MG/2 ML VIAL IVP PRN (21:56)
[2017-05-01] MEDS ORDERED: Naloxone 0.4 MG/ML INJ IVP PRN (21:56)
[2017-05-01] MEDS ORDERED: *HR* Morphine 2 MG/ML SYRINGE IVP PRN (21:56)
[2017-05-01] MEDS ORDERED: Acetaminophen 325 MG TABLET PO PRN (21:56)
--- NOTE | 2017-05-01 22:02 | Internal Med History&Physical ---
Date of Encounter: 05/01/17 Time of Encounter: 21:50 Assessment and Plan (1) PVCs (premature ventricular contractions) Current visit: No Status: Acute Frequent PVCs and bigeminy - palpitations Continue Metoprolol 25 mg twice daily Chest x-ray - no acute process Troponin - 0.01 EKG - sinus rhythm with frequent PVCs TSH - 1.491 Mag - 2.0 Cardio consult pending Cardiac telemetry, labs in a.m., monitor course (2) Essential hypertension Current visit: Yes Status: Acute Essential hypertension, controlled, monitor Continue home dose of Metoprolol, Felodipine (3) DVT prophylaxis Current visit: Yes Status: Acute Heparin subcutaneous Internal Medicine - H&P: HPI Chief complaint: Palpitations Admitted From: Emergency Dept Plans for Post Hospital Care: Home History of present illness: Ms. Will is a 76 year old female with past medical history of hypertension and PVCs. Patient presents to the ED with complaints of palpitations and irregular heart rhythm. Examined in the room. Patient is awake and alert. Not in any distress. Able to provide all history. No family members at bedside. Patient states she developed palpitations earlier this afternoon. She states she does have PVCs regularly, but today's episode seemed to be worse. Patient states she takes Toprol-XL for PVCs. She denies chest pain, denies shortness of breath. Denies headache or cough or dizziness or abdominal pain or vomiting. She has no other complaints other than her palpitations. No aggravating or alleviating factors. No other associated symptoms. No other acute complaints. Patient will start on IV amiodarone in the ED. Initial workup in the ED is significant for EKG which shows PVCs and bigeminy. Chest x-ray does not show any acute process troponin is negative. TSH and magnesium are within normal limits. Cardiology has been consulted from the ED. Advised Lopressor 25 mg twice daily. Patient has been explained about her condition and plan of care in detail. She understood and agreed. No unanswered questions. CODE STATUS full code. Past Med Surg Social Fam HX - Past Medical History Medical history: hypertension Psychiatric history: anxiety - Social History Smoking Status: Never smoker Smokeless Tobacco Status: No Alcohol use: rarely Drug use: none - Family History Mother Living Status: Hx Family Cardiac Disorders: Yes (MARIA T) Internal Medicine - H&P: Meds Felodipine [Felodipine ER] 2.5 mg PO DAILY 06/11/16 [History] Fluorometholone [Fml] 1 drop RIGHT EYE QID 09/25/16 [History] Metoprolol XL (24 HR) Succ [Toprol Xl] 12.5 mg PO DAILY 30 Days tab.er.24h [Rx] Azithromycin [Azithromycin] 250 mg PO PER PKG DI 05/01/17 [History] 3 Allergy/AdvReac Type Severity Reaction Status Date / Time JUVENAL Inhibitors Allergy Rash Verified 09/26/16 08:04 Penicillins [PCN] Allergy Rash Verified 09/26/16 08:04 Sulfa (Sulfonamide Allergy Rash Verified 09/26/16 08:04 Antibiotics) All Systems PM: A 10-system review of systems was performed and is negative for pertinent findings except as documented above in the HPI. - Constitutional Constitutional: no fatigue, no fever(s), no falls, no weakness - EENT Eyes: no blurry vision - Cardiovascular Cardiovascular ROS IM: palpitations, no chest pain, no claudication, no diaphoresis, no dyspnea, no dyspnea on exertion, no lightheadedness, no orthopnea, no syncope - Respiratory Respiratory: no cough, no dyspnea, no hemoptysis, no dyspnea on exertion, no wheezing, no chest congestion - Gastrointestinal Gastrointestinal: no abdominal pain, no cramping, no diarrhea, no hematemesis, no melena, no nausea, no vomiting - Genitourinary Genitourinary: no dysuria - Musculoskeletal Musculoskeletal ROS IM: no back pain - Neurological Neurological ROS: no abnormal gait, no confusion, no convulsions, no dizziness, no numbness, no tingling - Constitutional Vitals: Temp Pulse Resp BP Pulse Ox 98.0 F 52 16 127/66 98 05/01/17 21:23 05/01/17 21:23 05/01/17 21:23 05/01/17 21:23 05/01/17 21:23 General appearance: Present: cooperative, A&O X 3, pleasant, no acute distress, answers questions appropriately - Head Head exam: Present: atraumatic - Eye Eye exam: Present: EOMI - ENT ENT exam: Present: mucous membranes moist - Respiratory Respiratory exam: Present: CTAB. Absent: rales, rhonchi, wheezes, tachypnea - Cardiovascular Cardiovascular exam: Present: RRR, +S1, +S2 - GI/Abdominal GI/Abdominal exam: Present: soft. Absent: distended, firm, guarding, tenderness - Extremities Exam Extremities exam: Present: radial pulses palpable and symmetrical. Absent: calf tenderness, cyanotic, pedal edema - Neurological Exam Neurological exam: Present: alert, oriented X3, no focal deficits. Absent: facial droop, speech deficit Internal Med - H&P Results - Labs CBC & Chem 7: 05/01/17 18:15 05/01/17 18:15
[2017-05-02 03:39] LABS: BUN/Creatinine Ratio 12 (6-26); Blood Urea Nitrogen 8 mg/dL (7-20); Calcium 8.4 mg/dL (8.6-10.8); Carbon Dioxide 25 mEq/L (19-29); Chloride 110 mEq/L (98-109); Glucose 84 mg/dL (70-99); Osmolality,Calculated 288 (280-300); Potassium 3.5 mEq/L (3.5-4.5); Sodium 140 mEq/L (136-145); eGFR For African Americans > 60 (> 60); eGFR For Non-African Americans > 60 (> 60)
[2017-05-02] MEDS ORDERED: *HR* Heparin 5,000 UNIT/ML VIAL SQ SCH (06:00)
--- NOTE | 2017-05-02 07:55 | Cardiology Consult Note ---
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 CP free. Remains very active. Troponin negative. Electrolytes stable. Hx of symptomatic PVCs. Recently had BB dose decreased by PCP for low HR. Appears to have received Amio bolus in ER for PVCs. Now on BB. ECG reviewed and discussed with Dr. Pruitt, will DC BB and start Verapamil for PVC suppression. Cardiology will sign off, re-consult as needed, follow-up next weeks as scheduled for evaluation of symptoms with improvement of her respiratory infection and initiation of verapamil. Will consider Holter/Event at f/u based on symptoms. May need antiarrhythmic therapy in future. All questions answered. (2) Essential hypertension Current Visit: Yes Status: Chronic Per Cardiology: Elevated on arrival 170's, now 120's - 160's. On BB at home-- recently decreased by PCP for concerns of low HR dizziness. Monitor closely. Discussion w patient/family: The assessment and plan as outlined above was discussed with the patient who expressed understanding and agreement. All questions were answered. Thank you for involving us in the care of your patient. Please call with any questions. History of Present Illness Consult date: 05/02/17 Requesting physician: Jim Osei Consult reason: PVCs Chief complaint: Palps History of present illness: Ms. Will is a 76 year old female with the resident past medical history of nonobstructive CAD, PVCs, and hypertension. I last saw patient March 2017. Cardiology consult for increased frequency of PVCs and palpitations. Patient reports recent upper respiratory infection over the past few weeks and on second round of antibiotics with minimal improvement. She reports dry nonproductive cough. Reports mild increase in short of breath at rest and with exertion with the cough. She also reports increased frequency palpitations for the past few weeks. Denies any dizziness, syncope, falls. Denies any chest pain. Denies any active bleeding or blood loss. Denies any fever, chills, nausea , vomiting, diarrhea. She reports prior to upper respiratory infection has been working out regularly and following her normal routine of walking hills at local gym 2-1/2 miles 3 times per week with no chest pain symptoms. Past Med Surg Social Fam HX - Past Medical History Attestation: Yes The following information was validated with the patient. Source: patient, old records reviewed Medical history: coronary artery disease, hypertension Psychiatric history: anxiety - Social History Smoking Status: Never smoker Smokeless Tobacco Status: No Alcohol use: rarely Drug use: none - Family History Mother Living Status: Hx Family Cardiac Disorders: Yes (MURMER) Medications and Allergies Felodipine [Felodipine ER] 2.5 mg PO DAILY 06/11/16 [History] Fluorometholone [Fml] 1 drop RIGHT EYE QID 09/25/16 [History] Metoprolol XL (24 HR) Succ [Toprol Xl] 12.5 mg PO DAILY 30 Days tab.er.24h [Rx] Azithromycin [Azithromycin] 250 mg PO PER PKG DI 05/01/17 [History] 3 Allergy/AdvReac Type Severity Reaction Status Date / Time JUVENAL Inhibitors Allergy Rash Verified 09/26/16 08:04 Penicillins [PCN] Allergy Rash Verified 09/26/16 08:04 Sulfa (Sulfonamide Allergy Rash Verified 09/26/16 08:04 Antibiotics) All Systems Review: A 10-system review of systems was performed and is negative for pertinent findings except as documented above in the HPI. - Cardiovascular Cardiovascular: as per HPI, dyspnea at rest, dyspnea on exertion, irregular heart rhythm, palpitations - Respiratory Respiratory: cough Physical Examination Vital Signs, Last 4 Hours Temp Pulse Resp BP Pulse Ox 05/02/17 04:28 97.9 F 59 16 154/71 97 General: Conversant, No Apparent Distress HEENT: Atraumatic, Normocephaly, Mucus Membranes Moist Neck: No JVD, Normal carotid pulses Cardiac: Reg Rate and Rhythm, Normal S1 and S2, No Murmur Lungs: Normal Breath Sounds, No Wheeze, Rales, Rhonchi Neuro: Alert and responsive, No focal deficits noted Abdomen: Soft, Non-Tender Skin: No rashes noted on visualized skin Musculoskeletal: No Chest Wall Tenderness Extremities: No Clubbing, No Cyanosis, No Edema, Normal Pulses Results 05/01/17 18:15 05/02/17 02:43 Lab Results Laboratory Tests 05/01/17 05/01/17 05/01/17 18:15 18:15 18:15 INR 1.0 Creatinine Est GFR (Non-Af Amer) Magnesium 2.0 Troponin I 0.01 TSH 1.491 05/02/17 02:43 INR Creatinine 0.65 Est GFR (Non-Af Amer) > 60 Magnesium Troponin I TSH ITS Impressions Chest X-Ray 05/01/17 17:59 IMPRESSION: No acute cardiopulmonary process. D/ / Jalil Chavez MD / Jalil Chavez MD Interpreting Provider: Jalil Chavez MD Active Medications Acetaminophen (Tylenol) 650 mg PO Q6HR PRN PRN Reason: Mild Pain (1-3) Stop: 10/31/17 21:57 Last Admin: 05/02/17 06:25 Dose: 650 mg Heparin Sodium (Porcine) (Heparin) 5,000 unit SQ Q12HCO [facility] Stop: 11/01/17 06:01 Last Admin: 05/02/17 06:23 Dose: 5,000 unit Metoprolol Tartrate (Lopressor) 12.5 mg PO BID [facility] Stop: 11/01/17 09:01 Morphine Sulfate (Morphine Sulfate) 2 mg IVP Q4HR PRN PRN Reason: Severe Pain (7-10) Stop: 10/31/17 21:57 Naloxone HCl (Narcan) 0.4 mg IVP Q2MIN PRN PRN Reason: Opioid Reversal Stop: 10/31/17 21:57 Ondansetron HCl (Zofran) 4 mg IVP Q8HR PRN PRN Reason: Nausea And Vomiting Stop: 10/31/17 21:57 Pharmacy Profile Note (Patient Taking Own Medication) 1 each PO DAILY [facility] Stop: 11/01/17 09:01 - Imaging and Cardiology Chest Xray: report reviewed Echo: report reviewed Cardiac cath: report reviewed - EKG Interpretation EKG results cardiology: personally reviewed (Sinus rhythm with unifocal PVCs, comparable to baseline ECG, reviewed with Dr. Pruitt), no diagnostic ischemia, other (Telemetry reviewed temperature rate is 24 hours 52, slowest heart rate 40s during nocturnal hours, occasional PVCs with couplets and a few episodes of 3 beats of nonsustained VT) Consult Discharge Plan - Plan Referrals: Sravan Millan, [Primary Care Provider] -
[2017-05-02] MEDS ORDERED: FELODIPINE 2.5 MG PO SCH (09:00)
[2017-05-02] MEDS ORDERED: Metoprolol XL (24 HR) Succ 25 MG TAB.ER.24H PO SCH (09:00)
--- NOTE | 2017-05-02 09:10 | Internal Med Progress Note ---
<Jem Bryant - Last Filed: 05/02/17 14:06> Date of Encounter: 05/02/17 Time of Encounter: 09:04 - Assessment and plan (1) PVCs (premature ventricular contractions) Current Visit: No Status: Acute Assessment and plan: We appreciate cardiology's input. We will continue Lopressor 25 mg twice a day CXR negative for acute processes, troponin negative, TSH and Mg WNL (2) Essential hypertension Current Visit: Yes Status: Chronic Assessment and plan: BP 177/126 initially. This has been closer to goal. Cardiology initially recommended metoprolol 25 mg twice daily which has since been decreased to 12.5 mg twice daily. Also getting felodipine 2.5 mg daily (3) DVT prophylaxis Current Visit: Yes Status: Acute Assessment and plan: Heparin subcutaneous - Subjective Interval history: Ms. Will has a history of PVCs on Toprol-XL which was recently decreased by PCP for concerns of orthostatic hypotension. Palpitations were worse yesterday so she went to the ED. Otherwise asymptomatic. Cardiology advised Lopressor 25 mg twice daily Patient was seen and examined at bedside this morning. Lying comfortably in bed alert and oriented. She says she is still having palpitations however these are closer to her baseline and not nearly as bad as when she came to the emergency department yesterday. She denies chest pain, shortness of breath, abdominal pain, or other new complaints - Constitutional Vitals: Temp Pulse Resp BP Pulse Ox 97.8 F 54 18 169/74 98 05/02/17 07:51 05/02/17 08:05 05/02/17 07:51 05/02/17 07:51 05/02/17 07:51 General appearance: Present: cooperative, A&O X 3, pleasant, no acute distress, answers questions appropriately - Respiratory Respiratory exam: Present: CTAB. Absent: accessory muscle use, rales, rhonchi, wheezes - Cardiovascular Cardiovascular exam: Present: RRR, +S1, +S2. Absent: diastolic murmur, gallop, rubs, systolic murmur - GI/Abdominal GI/Abdominal exam: Present: normal bowel sounds, soft, no peritoneal signs. Absent: distended, tenderness - Extremities Exam Extremities exam: Present: warm, radial pulses palpable and symmetrical. Absent : calf tenderness, cyanotic, pedal edema - Neurological Exam Neurological exam: Present: oriented X3, no focal deficits. Absent: pronater drift, facial droop, speech deficit Internal Medicine: Result - Labs CBC & Chem 7: 05/01/17 18:15 05/02/17 02:43 Labs: BMP 05/02/17 02:43 Sodium 140 Potassium 3.5 Chloride 110 H Carbon Dioxide 25 BUN 8 Creatinine 0.65 Glucose 84 Calcium 8.4 L - ABG Interpretation ABG results: PT/INR, D-dimer PT 10.9 Seconds (9.4-12.1) 05/01/17 18:15 Consult Discharge Plan - Plan Referrals: Daniel Andrea, ETHICAL HACKER [Advanced Practice Nurse] - (OFFICE WILL CALL YOU WITH FOLLOW UP APPOINTMENT) Sravan Millan, [Primary Care Provider] - (REQUEST SENT TO OFFICE @1017. OFFICE WILL CALL YOU WITH FOLLOW UP APPOINTMENT) <Iggy Cuevas - Last Filed: 05/02/17 14:23> Date of Encounter: 05/02/17 - Constitutional Vitals: Temp Pulse Resp BP Pulse Ox 98.2 F 59 18 149/74 98 05/02/17 11:16 05/02/17 12:20 05/02/17 11:16 05/02/17 11:16 05/02/17 11:16 Internal Medicine: Result - Labs CBC & Chem 7: 05/01/17 18:15 05/02/17 02:43 Labs: BMP 05/02/17 02:43 Sodium 140 Potassium 3.5 Chloride 110 H Carbon Dioxide 25 BUN 8 Creatinine 0.65 Glucose 84 Calcium 8.4 L - ABG Interpretation ABG results: PT/INR, D-dimer PT 10.9 Seconds (9.4-12.1) 05/01/17 18:15 - Attending Attestation I independlenty interviwed and examined this pt. I discussed the case with Dr. Bryant, chemist internship and agree with his findings, assessment and plan. Cardiology nput appreciated. Antic dc later today as her sx are improved.
[2017-05-02] MEDS ORDERED: Verapamil ER (24 HR) 120 MG TABLET.ER PO SCH (10:00)
[2017-05-02 11:18] VITALS: BP 149/74
--- NOTE | 2017-05-02 14:09 | Discharge Summary ---
Date of Encounter: 05/02/17 Time of Encounter: 14:07 - Discharge Diagnosis (1) PVCs (premature ventricular contractions) Priority: Primary Status: Acute (2) Essential hypertension Priority: Secondary Status: Chronic (3) DVT prophylaxis Priority: Secondary Status: Acute - Discharge Medications Prescriptions: Verapamil ER (24 HR) [Calan SR] 120 mg PO DAILY #15 tablet.er Home Medications: Fluorometholone [Fml] 1 drop RIGHT EYE QID 09/25/16 [History] Azithromycin 250 mg PO PER PKG DI 05/01/17 [History] Acetaminophen [Tylenol] 650 mg PO Q6HR PRN tablet 05/02/17 [Rx] Patient Taking Own Medication 1 each PO DAILY each 05/02/17 [Rx] Verapamil ER (24 HR) [Calan SR] 120 mg PO DAILY #15 tablet.er 05/02/17 [Rx] Allergies/Adverse Reactions: 3 Allergy/AdvReac Type Severity Reaction Status Date / Time JUVENAL Inhibitors Allergy Rash Verified 09/26/16 08:04 Penicillins [PCN] Allergy Rash Verified 09/26/16 08:04 Sulfa (Sulfonamide Allergy Rash Verified 09/26/16 08:04 Antibiotics) Procedures/tests Complete & Pending: Procedures Performed prior 72 hours Category Date Time Status ECG 12 lead ECG [ECG] AM 0600 Y 05/02/17 06:00 Ordered Date of admission: 05/01/17 20:15 Primary care physician: Sravan Millan Discharging clinician: Iggy Cuevas Anticipated date of discharge: 05/02/17 - Patient Status Disposition: Home, Self-Care Condition: Good Functional capacity at discharge: independent ambulation Overall status at discharge: patient is back to baseline - Discharge Instructions Follow Up With: Daniel Andrea, ELECTRIC DOLLY OPERATOR [Advanced Practice Nurse] - (OFFICE WILL CALL YOU WITH FOLLOW UP APPOINTMENT) Sravan Millan DO [Primary Care Provider] - (REQUEST SENT TO OFFICE @2275. OFFICE WILL CALL YOU WITH FOLLOW UP APPOINTMENT) - Diet and Activity Activity: resume usual activities as tolerated Diet: advance to your usual diet Interval History: Patient seen and evaluated by myself as well as cardiology team this morning and she is stable and symptomatically much improved, states she feels ready to go home. Cardiology has cleared her to go home on verapamil Hospital course: Ms. Will is a 76 year old female with past medical history including chronic symptomatic PVCs on metoprolol. Her PCP recently reduced her beta karl dosage due to bradycardia. She recently came to the ER for worsening palpitations and was found to have PVCs with bigeminy. Was evaluated by cardiology who recommends stopping felodipine and metoprolol and starting verapamil. Alfa has follow-up scheduled with Daniel Andrea NP - Time Spent with Patient Total time spent providing and/or coordinating discharge services: Greater than 30 minutes - Constitutional Vitals: Temp Pulse Resp BP Pulse Ox 98.2 F 59 18 149/74 98 05/02/17 11:16 05/02/17 12:20 05/02/17 11:16 05/02/17 11:16 05/02/17 11:16 General appearance: Present: cooperative, A&O X 3, pleasant, no acute distress, answers questions appropriately - Respiratory Respiratory exam: Present: CTAB. Absent: accessory muscle use, rales, rhonchi, wheezes - Cardiovascular Cardiovascular exam: Present: RRR, +S1, +S2. Absent: diastolic murmur, gallop, rubs, systolic murmur - GI/Abdominal GI/Abdominal exam: Present: normal bowel sounds, soft, no peritoneal signs. Absent: distended, tenderness - Extremities Exam Extremities exam: Present: warm, radial pulses palpable and symmetrical. Absent : calf tenderness, cyanotic, pedal edema - Neurological Exam Neurological exam: Present: oriented X3, no focal deficits
--- NOTE | 2017-05-02 18:13 | Event Note ---
Date of Encounter: 05/02/17 Time of Encounter: 17:15
--- NOTE | 2017-05-06 08:51 | Electrocardiograph Report ---
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
--- NOTE | 2017-05-06 09:39 | Electrocardiograph Report ---
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
== END 2017-05-02 15:47 | disposition home or self-care (01) ==
LOC: EMEROO 17:32 → 2NNU 17:32
PROVIDERS: ADMIT Family Medicine; ATTEND Student in an Organized Health Care Education/Training Program